=== PATIENT | female | born 1965 | race Caucasian/White ===

== ENCOUNTER 2016-05-17 06:52 | Day surgery (SDC) | payer BC, OTHER ==
[2016-05-13 15:25] VITALS: BMI 23.4
--- NOTE | 2016-05-16 14:33 | P.GSHP ---
History of Present Illness H&P Date: 05/17/16 CHIEF COMPLAINT: GERD HISTORY OF PRESENT ILLNESS: The patient is a 51-year-old female who presents reports gastroesophageal reflux disease. Upper endoscopy was offered for further evaluation and management. PAST MEDICAL HISTORY: Please see list. PAST SURGICAL HISTORY: Please see list. MEDICATIONS: Please see list. ALLERGIES: Please see list. SOCIAL HISTORY: No illicit drug use FAMILY HISTORY: No reports of Crohn disease or ulcerative colitis. REVIEW OF ORGAN SYSTEMS: CONSTITUTIONAL: No reports of fevers or chills. GI: Denies any blood in stools or constipation. PHYSICAL EXAM: VITAL SIGNS: Stable GENERAL: Well-developed and pleasant in no acute distress. HEENT: No scleral icterus. Extraocular movements grossly intact. Moist buccal mucosa. NECK: Supple without lymphadenopathy. CHEST: Unlabored respirations. Equal bilateral excursions. CARDIOVASCULAR: Regular rate and rhythm. Distal 2+ pulses. ABDOMEN: Soft, nondistended. MUSCULOSKELETAL: No clubbing, cyanosis, or edema. ASSESSMENT: 1. Gastroesophageal reflux disease PLAN: 1. Recommend proceeding with an upper endoscopy Past Medical History Past Medical History: Hypertension Additional Past Medical History / Comment(s): Diverticulitis History of Any Multi-Drug Resistant Organisms: None Reported Past Surgical History: Bariatric Surgery, Orthopedic Surgery, Tonsillectomy Additional Past Surgical History / Comment(s): D and C with fibroid removal and ABALATION. 08/07/12 RNY, panniculectomy. TOE SX Past Anesthesia/Blood Transfusion Reactions: Motion Sickness Past Psychological History: Depression Smoking Status: Never smoker Past Alcohol Use History: Occasional Past Drug Use History: None Reported - Past Family History Mother Family Medical History: No Reported History Additional Family Medical History / Comment(s): Skin Cancer Medications and Allergies Home Medications Medication Instructions Recorded Confirmed Type Metoprolol/Hydrochlorothiazide 25 mg PO BID 08/08/13 05/13/16 History [Metoprolol-Hctz 50-25 mg Tab] Multivitamins, Thera [Multivitamin] 1 tab PO DAILY 08/08/13 05/13/16 History Sertraline [Zoloft] 100 mg PO DAILY 09/18/15 05/13/16 History Calcium Carbonate/Vitamin D3 1 each PO DAILY 05/13/16 05/13/16 History [Calcium 600-Vit D3 200 Tablet] Allergies Allergy/AdvReac Type Severity Reaction Status Date / Time No Known Allergies Allergy Verified 05/13/16 15:19
[~2016-05-17 06:52] MED LIST: LACTATED RINGERS 1,000 ML IV SCH
[2016-05-17 07:01] VITALS: RESP 18; TEMP 97.3
[2016-05-17] MEDS ORDERED: LACTATED RINGERS 1,000 ML IV ONE ×2 (07:06)
[2016-05-17] MEDS ORDERED: LIDOCAINE 1% INJ 10MG/ML (20 ML MDV) ONE (07:07)
[2016-05-17] MEDS ORDERED: PROPOFOL 10 MG/ML 20 ML VIAL IV ONE (07:07)
[2016-05-17] MEDS ORDERED: GLYCOPYRROLATE 0.2 MG/ML 2 ML VIAL ONE (07:07)
[2016-05-17] MEDS ORDERED: IV FLUID CONTINUATION 1,000 ML IV ONE (07:27)
--- NOTE | 2016-05-17 07:33 | P.PCN ---
Date of Procedure: 05/17/16 Description of Procedure: PREOPERATIVE DIAGNOSIS: Gastroesophageal reflux disease. Epigastric abdominal pain. POSTOPERATIVE DIAGNOSIS: Gastroesophageal reflux disease. Epigastric abdominal pain. Gastrojejunal stricture. OPERATION: Esophagogastrojejunoscopy with balloon dilatation from 12 to 18 mm. Esophagogastrojejunoscopy with cold biopsies along jejunum and gastroesophageal junction. SURGEON: Melisa Toribio MD ANESTHESIA: MAC. INDICATIONS: The patient is a 51-year-old female who presents with a history of epigastric abdominal pain and history of gastric bypass. Benefits and risks of the procedure were described. Informed consent was obtained. DESCRIPTION: The patient was brought into the endoscopy suite and laid in the left lateral decubitus position. After a timeout was confirmed, the procedure was initiated. An Olympus gastroscope was passed along the posterior oropharynx down to the distal esophagus where the squamocolumnar junction was unremarkable. The gastric pouch was entered. A small pouch of 2 cm was identified. Stricture was also identified. Biopsies were obtained of the proximal jejunum and GE junction. A gastrojejunal stricture of 12 mm was found as the adult gastroscope was 9.5 mm in size. A LAFASO balloon dilator was placed through the scope. Final insufflation up to 18 mm was performed with a total of 2 minutes. The scope was advanced up to 60 cm from the incisors into the Linus limb. The mucosa of the gastrojejunal anastomosis was intact. No full-thickness injury was encountered. The GI tract was desufflated. The patient tolerated the procedure well. FINDINGS: Squamocolumnar junction unremarkable at 38 cm. 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 Stricture of approximately 12 mm encountered. No chronic gastrojejunal ulceration encountered. Small gastric pouch 2 cm. Successful balloon dilatation to 18 mm. RECOMMENDATIONS: Upper endoscopy as needed.
[2016-05-17] MEDS ORDERED: hydrALAZINE HCL 20 MG/ML 1 ML VIAL IVP ONE (07:37)
[2016-05-17 08:04] VITALS: BP 150/78; PULSE 87
[2016-05-17 08:56] LABS: CH 31.7; CHCM 33.9; HCT 40.9 % (34.0-46.0); HDW 2.51; HGB 13.6 gm/dL (11.4-16.0); MCH 31.2 pg (25.0-35.0); MCHC 33.3 g/dL (31.0-37.0); MCV 93.7 fL (80.0-100.0); Mean Platelet Volume 6.6; RBC 4.36 m/uL (3.80-5.40); RDW 12.2 % (11.5-15.5); WBC 3.7 k/uL (3.8-10.6)
[2016-05-17 09:02] LABS: Partial Thromboplastin Time 23.1 sec (22.0-30.0); Prothrombin Time 10.5 sec (9.0-12.0)
[2016-05-17 10:59] LABS: ALT 69 U/L (9-52); AST 45 U/L (14-36); Alkaline Phosphatase 62 U/L (38-126); Anion Gap 9 mmol/L; Blood Urea Nitrogen 13 mg/dL (7-17); Calcium 9.5 mg/dL (8.4-10.2); Carbon Dioxide 29 mmol/L (22-30); Chloride 106 mmol/L (98-107); Cholesterol 201 mg/dL (<200); Glucose 107 mg/dL (74-99); HDL Cholesterol 76 mg/dL (40-60); Iron 120 ug/dL (37-170); Non-African American GFR(MDRD) >60 (>60 ml/min/1.73 sqM); Phosphorous 3.5 mg/dL (2.5-4.5); Sodium 144 mmol/L (137-145); Total Bilirubin 0.8 mg/dL (0.2-1.3); Total Protein 6.5 g/dL (6.3-8.2); Triglycerides 106 mg/dL (<150)
[2016-05-17 11:05] LABS: Potassium 4.3 mmol/L (3.5-5.1)
[2016-05-17 11:11] LABS: Prealbumin 30 mg/dL (18-36); Total Iron Binding Capacity 316 ug/dL (265-497)
[2016-05-17 11:46] LABS: Hemoglobin A1C 5.2 % (4.2-6.1)
[2016-05-17 12:12] LABS: Vitamin B12 425 pg/mL (239-931)
[2016-05-22 13:38] LABS: Selenium 153 mcg/L (63-160)
== END 2016-05-17 08:03 | disposition home or self-care (01) ==
LOC: ORWHC2ENDO 06:52
PROVIDERS: ATTEND Surgery Plastic and Reconstructive Surgery
DX: K21.9 Gastro-esophageal reflux disease without esophagitis (principal); K31.89 Other diseases of stomach and duodenum; K29.50 Unspecified chronic gastritis without bleeding; Z98.84 Bariatric surgery status; I10 Essential (primary) hypertension; F32.9 Major depressive disorder, single episode, unspecified; Z79.899 Other long term (current) drug therapy
CPT/HCPCS: 84255; 84134; 88305; 84425; 80061; 80053; 82607; 82728; 83036; 82525; 82746; 83540; 83550; 83735; 84100; 84590; 84630; 85027; 85610; 85730; 82306; 83970; 36415; 43239; 43249; J0360; J2001; J2704; 88342

== ENCOUNTER → 2022-02-10 | Outpatient (CLI) | payer OTHER ==
[2022-02-10 14:02] VITALS: BP 141/87; PULSE 86; TEMP 98.3; BMI 26.7
--- NOTE | 2022-02-10 14:26 | P.HPBAR ---
Bariatric H&P - History & Physicial H&P Date: 02/10/22 History & Physicial: Visit/CC: hospital f/u Patient initial contact: Initial weight: 93.1 kg Initial weight in pounds: 205.25 Height: 5 ft Initial BMI: 40.1 Last weight: Current weight: 62.142 kg Current weight in pounds: 137.00 Current BMI: 26.7 [place] body weight (based on NIH guidelines): 45.359 kg Excess body weight loss: 64.8% The patient is a 56 year-old F who presents for Bariatric Assessment. No GERD. She is almost 10 years out. She reports intermittent epigastric pain. Her last follow-up is in 5 years. She had COVID in the past. She reports dysphagia with pills. She had anemia Hgb 5.1. She was sent to [facility]. She drinks 4 beers for week. She did not have a colonoscopy. She may be do for a colonoscopy. Recommend colonoscopy. She has severe dysphagia. Recommend upper endoscopy with dysphagia. She reports fatigue and tired with no energy. Recommend urine drug screen. She needs iron infusion. Lysis of adhesions may be possible due to her pain. Upper and lower scope for anemia and dysphagia. Past Medical History Past Medical History: Hypertension Additional Past Medical History / Comment(s): Diverticulitis History of Any Multi-Drug Resistant Organisms: None Reported Past Surgical History: Bariatric Surgery, Orthopedic Surgery, Tonsillectomy Additional Past Surgical History / Comment(s): D and C with fibroid removal and ABALATION. 08/07/12 RNY, panniculectomy. TOE SX Past Anesthesia/Blood Transfusion Reactions: Motion Sickness Past Psychological History: Anxiety, Depression Smoking Status: Never smoker Past Alcohol Use History: Occasional Past Drug Use History: None Reported - Past Family History Mother Family Medical History: No Reported History Additional Family Medical History / Comment(s): Skin Cancer Surgical - Exam Vital Signs Temp Pulse BP 98.3 F 86 141/87 02/10/22 13:48 02/10/22 13:48 02/10/22 13:48 Bariatric Checklist Checklist: Plan: Checklist: EGD: 1. Hiatal hernia: 2. H. Pylori: HgbA1c: Vitamin D: Smoking: Never smoker Primary care physician referral: Dr. Haddad Psychiatry clearance: Cardiology clearance: Sleep study: Diet journal: VTE risk score: VTE risk level: Rehab needs at discharge:
[2022-02-10 15:53] LABS: INR 0.9 (<1.2); Partial Thromboplastin Time 23.2 sec (22.0-30.0); Prothrombin Time 10.2 sec (9.0-12.0)
[2022-02-10 23:12] LABS: HCT 31.1 % (37.2-46.3); HGB 8.9 g/dL (12.0-15.0); MCH 23.3 pg (27.0-32.0); MCHC 28.6 g/dL (32.0-37.0); MCV 81.4 fL (80.0-97.0); Mean Platelet Volume 9.3 fL (9.5-12.2); NRBC Per 100 WBC 0 /100 WBCS (0.0-0.0); Platelet Count 309 X 10*3/uL (140-440); RBC 3.82 X 10*6/uL (4.10-5.20); RDW 23.8 % (11.5-14.5); WBC 5.78 X 10*3/uL (4.50-10.00)
[2022-02-11 00:16] LABS: % Iron Saturation 10.52 (12.00-45.00); ALT 25 U/L (8-44); AST 33 U/L (13-35); African American GFR (CKD) 112.7 (60.0-200.0); Albumin 4.5 g/dL (3.8-4.9); Albumin/Globulin Ratio 1.92 (1.60-3.17); Alkaline Phosphatase 79 U/L (41-126); BUN/Creat Ratio 20.97 Ratio (12.00-20.00); Blood Urea Nitrogen 13.9 mg/dL (9.0-27.0); Calcium 10.1 mg/dL (8.7-10.3); Carbon Dioxide 22.6 mmol/L (20.0-27.5); Chloride 104 mmol/L (96-109); Ferritin 13.9 ng/mL (10.0-291.0); Globulin 2.4 g/dL (1.6-3.3); Glucose 95 mg/dL (70-110); Iron 60 ug/dL (50-170); Magnesium 1.9 mg/dL (1.5-2.4); Non-African American GFR(CKD) 97.2 (60.0-200.0); Phosphorus 4.7 mg/dL (2.4-5.1); Potassium 3.6 mmol/L (3.5-5.5); Sodium 141 mmol/L (135-145); Total Bilirubin <0.15 mg/dL (0.30-1.20); Total Iron Binding Capacity 571 ug/dL (228-460); Total Protein 6.9 g/dL (6.2-8.2)
[2022-02-11 00:24] LABS: Chol/HDL Ratio 2.64 Ratio; LDL Cholesterol,Calculated 106.6 mg/dL (0.0-131.0); Prealbumin 18.9 mg/dL (18.0-42.0); VLDL Calculation 19.96 mg/dL (5.00-40.00)
[2022-02-11 13:24] LABS: Zinc, Serum 49 ug/dL (60-130)
[2022-02-12 06:14] LABS: Vitamin A 44 ug/dL (38-106)
[2022-02-12 13:00] LABS: Vit B1(Thiamine) 61 ug/L (38-122)
== END ==
LOC: BARWHC3 13:35
PROVIDERS: ATTEND Surgery Plastic and Reconstructive Surgery
DX: E66.01 Morbid (severe) obesity due to excess calories (principal); D50.8 Other iron deficiency anemias; E89.1 Postprocedural hypoinsulinemia; K90.89 Other intestinal malabsorption; E55.9 Vitamin D deficiency, unspecified; K74.1 Hepatic sclerosis; N19 Unspecified kidney failure; T56.894A Toxic effect of other metals, undetermined, initial encounter; K50.90 Crohn's disease, unspecified, without complications; Z68.26 Body mass index [BMI] 26.0-26.9, adult
CPT/HCPCS: 84255; 84134; 84425; 80061; 80053; 82607; 82728; 82525; 82746; 83540; 83550; 83735; 84100; 84443; 84590; 84630; 85027; 85610; 85730; 82306; 80323; 83970; 83036; 80307; 99211; 93005; 36415; G0482

== ENCOUNTER 2022-03-08 08:37 | Day surgery (SDC) | payer OTHER ==
[2022-03-03 13:51] VITALS: BMI 25.9
[2022-03-08] MEDS ORDERED: LACTATED RINGERS 1,000 ML IV SCH (08:51)
--- NOTE | 2022-03-08 09:00 | P.GSHP ---
History of Present Illness H&P Date: 03/08/22 CHIEF COMPLAINT: GERD and colon screen HISTORY OF PRESENT ILLNESS: The patient is a 57-year-old female who presents with gastroesophageal reflux disease and need for colon screen. Upper and lower endoscopy were offered for further evaluation and management. PAST MEDICAL HISTORY: Please see list. PAST SURGICAL HISTORY: Please see list. MEDICATIONS: Please see list. ALLERGIES: Please see list. SOCIAL HISTORY: No illicit drug use FAMILY HISTORY: No reports of Crohn disease or ulcerative colitis. REVIEW OF ORGAN SYSTEMS: CONSTITUTIONAL: No reports of fevers or chills. GI: Denies any blood in stools or constipation. PHYSICAL EXAM: VITAL SIGNS: Stable GENERAL: Well-developed pleasant in no acute distress. HEENT: No scleral icterus. Extraocular movements grossly intact. Moist buccal mucosa. NECK: Supple without lymphadenopathy. CHEST: Unlabored respirations. Equal bilateral excursions. CARDIOVASCULAR: Regular rate and rhythm. Distal 2+ pulses. ABDOMEN: Soft, nondistended. MUSCULOSKELETAL: No clubbing, cyanosis, or edema. ASSESSMENT: 1. Gastroesophageal reflux disease 2. Colon screen. PLAN: 1. Recommend proceeding with an upper and lower endoscopy Past Medical History Past Medical History: Hypertension Additional Past Medical History / Comment(s): Diverticulitis History of Any Multi-Drug Resistant Organisms: None Reported Past Surgical History: Bariatric Surgery, Orthopedic Surgery, Tonsillectomy Additional Past Surgical History / Comment(s): D and C with fibroid removal and ABALATION. 08/07/12 RNY, panniculectomy. TOE SX, blepheroplasty Past Anesthesia/Blood Transfusion Reactions: Motion Sickness Smoking Status: Never smoker - Past Family History Mother Family Medical History: No Reported History Additional Family Medical History / Comment(s): Skin Cancer Medications and Allergies Home Medications Medication Instructions Recorded Confirmed Type ARIPiprazole [Abilify] 2 mg PO DAILY 02/10/22 03/03/22 History Cyclobenzaprine HCl 5 mg PO HS PRN 02/10/22 03/03/22 History Escitalopram Oxalate [Lexapro] 20 mg PO DAILY 02/10/22 03/03/22 History Ferrous Sulfate [Iron] 325 mg PO DAILY 02/10/22 03/03/22 History Losartan/Hydrochlorothiazide 1 tab PO DAILY 02/10/22 03/03/22 History [Losartan-Hctz 100-25 mg Tab] Metoprolol Tartrate [Lopressor] 50 mg PO BID 02/10/22 03/03/22 History amLODIPine BESYLATE 5 mg PO DAILY 02/10/22 03/03/22 History hydrOXYzine HCL [Hydroxyzine HCl] 25 mg PO HS PRN 02/10/22 03/03/22 History Multivitamin [Multivitamins Adult 1 each PO DAILY 02/23/22 03/03/22 History Gummies] Iron Infusion IVPB 03/03/22 History Allergies Allergy/AdvReac Type Severity Reaction Status Date / Time No Known Allergies Allergy Verified 03/03/22 13:55
[2022-03-08 09:17] VITALS: RESP 16; TEMP 98.2
[2022-03-08] MEDS ORDERED: PROPOFOL 10 MG/ML 20 ML VIAL IV ONE (09:24)
--- NOTE | 2022-03-08 09:41 | P.PCN ---
Date of Procedure: 03/08/22 Description of Procedure: PREOPERATIVE DIAGNOSIS: Dysphagia. s/p Linus-en-y gastric bypass. Nausea with vomiting. Gastroesophageal reflux disease POSTOPERATIVE DIAGNOSIS: Dysphagia. s/p Linus-en-y gastric bypass. Nausea with vomiting. 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 SURGEON: Melisa Toribio MD ANESTHESIA: MAC. INDICATIONS: The patient is a 57-year-old female who presents with a history of dysphagia, gastric bypass including nausea and vomiting. Benefits and risks of the procedure were described. Informed consent was obtained. DESCRIPTION: The patient was brought into the endoscopy suite and laid in the left lateral decubitus position. After a timeout was confirmed, the procedure was initiated. An Olympus gastroscope was passed along the posterior oropharynx down to the distal esophagus where the squamocolumnar junction was unremarkable. The gastric pouch was entered. A gastrojejunal stricture of 14 mm was found as the adult gastroscope was 9.5 mm in size. A [employer] balloon dilator was placed through the scope. Final insufflation up to 18.5 mm was performed with a total of 2 minutes. The scope was advanced up to 60 cm from the incisors into the Linus limb. The mucosa of the gastrojejunal anastomosis was intact. No chronic gastrojejunal marginal ulcer was encountered. No full-thickness injury was encountered. The GI tract was desufflated. The patient tolerated the procedure well. FINDINGS: Squamocolumnar junction unremarkable at 37 cm. Stricture of approximately 14 mm encountered. No shronic gastrojejunal ulceration encountered. Successful balloon dilatation to 18.5 Diaphragmatic hiatal hernia, 2 cm. Gastric pouch 3 cm. RECOMMENDATIONS: Continue omeprazole Upper endoscopy as needed
[2022-03-08 10:14] VITALS: BP 146/95; PULSE 57
--- NOTE | 2022-03-08 10:45 | P.PCN ---
Date of Procedure: 03/08/22 Description of Procedure: PREOPERATIVE DIAGNOSIS: Anemia POSTOPERATIVE DIAGNOSIS: History of anemia OPERATION: Colonoscopy to the ascending colon SURGEON: Melisa Toribio MD. ANESTHESIA: MAC. INDICATIONS: The patient is a 57-year-old female who presents with anemia. Benefits and risks were described and informed consent was obtained. DESCRIPTION OF PROCEDURE: The patient had undergone Sutab prep. The patient had been brought into the operating room and laid in the left lateral decubitus position. After adequate intravenous sedation, the rectum was examined with 2% lidocaine jelly. External hemorrhoids were encountered. The rectal tone was within normal limits. No lesions were palpated in the rectal vault. An Olympus colonoscope was advanced through very tortuous sigmoid colon. Due to long length of colon, scope terminated to the ascending colon. The prep was excellent. No scattered diverticulosis was encountered. No colonic polyps were found. No evidence of focal colitis was found. Retroflexion of the scope demonstrated grade 3 internal hemorrhoids without active bleeding or inflammation. The colon was desufflated. The patient had tolerated the procedure well. Withdrawal time was over 6 minutes. FINDINGS: Aronchick preparation quality scale 1 (1-5) Internal hemorrhoids, grade 3 External prolapsed hemorrhoids, grade 3 No arteriovenous malformations. No adenomatous polyps. No focal colitis. No sigmoid diverticulosis RECOMMENDATIONS: Lower endoscopy in 5 years, 2026 May need additional diagnostic studies including computed tomography scan due to redundant sigmoid colon, possible sigmoid volvulus Plan - Discharge Summary New Discharge Prescriptions: New Omeprazole [PriLOSEC] 40 mg PO DAILY #14 cap Continue ARIPiprazole [Abilify] 2 mg PO DAILY Iron Infusion IVPB Metoprolol Tartrate [Lopressor] 50 mg PO BID Escitalopram Oxalate [Lexapro] 20 mg PO DAILY hydrOXYzine HCL 25 mg PO HS PRN PRN Reason: sleep Ferrous Sulfate [Iron] 325 mg PO DAILY Cyclobenzaprine HCl 5 mg PO HS PRN PRN Reason: sleep amLODIPine BESYLATE 5 mg PO DAILY Losartan/Hydrochlorothiazide [Losartan-Hctz 100-25 mg Tab] 1 tab PO DAILY Multivitamin [Multivitamins Adult Gummies] 1 each PO DAILY Discharge Medication List ARIPiprazole [Abilify] 2 mg PO DAILY 02/10/22 [History] Cyclobenzaprine HCl 5 mg PO HS PRN 02/10/22 [History] Escitalopram Oxalate [Lexapro] 20 mg PO DAILY 02/10/22 [History] Ferrous Sulfate [Iron] 325 mg PO DAILY 02/10/22 [History] Losartan/Hydrochlorothiazide [Losartan-Hctz 100-25 mg Tab] 1 tab PO DAILY 02/10/22 [History] Metoprolol Tartrate [Lopressor] 50 mg PO BID 02/10/22 [History] amLODIPine BESYLATE 5 mg PO DAILY 02/10/22 [History] hydrOXYzine HCL 25 mg PO HS PRN 02/10/22 [History] Multivitamin [Multivitamins Adult Gummies] 1 each PO DAILY 02/23/22 [History] Iron Infusion IVPB 03/03/22 [History] Omeprazole [PriLOSEC] 40 mg PO DAILY #14 cap 03/08/22 [Rx] [facility]Ref[place] [facility] [place] [place] [facility] Patient Instructions/Handouts: Colonoscopy (DC), *Surgery [facility] - (Anesthesia) Endoscopy Discharge Instructions Activity/Diet/Wound Care/Special Instructions: Repeat colonoscopy in 5 years, 2026 Discharge Disposition: HOME SELF-CARE
== END 2022-03-08 11:46 | disposition home or self-care (01) ==
LOC: ORWHC2ENDO 08:37
PROVIDERS: ATTEND Surgery Plastic and Reconstructive Surgery
DX: K21.9 Gastro-esophageal reflux disease without esophagitis (principal); D64.9 Anemia, unspecified; K44.9 Diaphragmatic hernia without obstruction or gangrene; I10 Essential (primary) hypertension; K56.699 Other intestinal obstruction unspecified as to partial versus complete obstruction; K64.8 Other hemorrhoids; F32.A Depression, unspecified; Z98.84 Bariatric surgery status; Z79.899 Other long term (current) drug therapy; Z80.9 Family history of malignant neoplasm, unspecified; Z90.89 Acquired absence of other organs
CPT/HCPCS: 45378; 43249; J2704; C1726

== ENCOUNTER → 2022-06-16 | Outpatient (CLI) | payer OTHER ==
[2022-06-16 17:33] VITALS: BP 146/83; PULSE 68; TEMP 98; BMI 27.5
--- NOTE | 2022-08-04 06:20 | P.BASOAP ---
Subjective Progress Note Date: 06/16/22 DATE OF SERVICE: 06/16/22 CHIEF COMPLAINT: Follow-up gastric bypass. HISTORY OF PRESENT ILLNESS: Eloisa Scruggs is a 57-year-old female who is status post gastric bypass in July 2012. She is 10 years out. Her highest weight in the program was 205.4 pounds. Body mass index was 40.1. Today she comes in weighing 141 pounds from 115 pounds, 7 years ago. She has gained 26 pounds in 7 years. She had anemia and had completed upper and lower endoscopy. No further dysphagia. No further gastroesophageal reflux disease. PHYSICAL EXAM: VITAL SIGNS: 5 feet 0 inches, 141 pounds, body mass index 27.5. Vital Signs Temp 98 F 06/16/22 17:29 Pulse 68 06/16/22 17:29 Resp BP 146/83 06/16/22 17:29 Pulse Ox FiO2 GENERAL: Well-developed female in no distress. HEENT: No scleral icterus. NECK: Supple without lymphadenopathy. CHEST: Nonlabored respirations. Equal bilateral excursions. CARDIOVASCULAR: Regular rate and rhythm. ABDOMEN: Soft, nontender. MUSCULOSKELETAL: No clubbing, cyanosis, or edema. NEURO: No focal or lateralizing signs. PSYCH: Alert and oriented to person, place, and time. EGD FINDINGS: Squamocolumnar junction unremarkable at 37 cm. Stricture of approximately 14 mm encountered. No shronic gastrojejunal ulceration encountered. Successful balloon dilatation to 18.5 Diaphragmatic hiatal hernia, 2 cm. Gastric pouch 3 cm. COLON FINDINGS: Aronchick preparation quality scale 1 (1-5) Internal hemorrhoids, grade 3 External prolapsed hemorrhoids, grade 3 No arteriovenous malformations. No adenomatous polyps. No focal colitis. No sigmoid diverticulosis LABS: Reviewed. Iron is low. ASSESSMENT: 1. Morbid obesity due to excess caloric intake. 2. Body mass index reduced from 40.1 to 27.5. 3. Status post Linus-en-Y gastric bypass. 4. Status post massive weight loss, 64 pounds. 5. History of abdominal pain 6. Hypertension without congestive heart failure. 7. History of iron-deficiency anemia. PLAN: 1. Follow up with iron infusions as needed for anemia 2. Follow up colonoscopy in 5 years 3. Upper endoscopy as needed for dysphagia 4. May benefit from hiatal hernia repair for symptomatic dysphagia 5. Follow up as needed. Objective - Vital Signs Vital signs: Vital Signs Temp 98 F 06/16/22 17:29 Pulse 68 06/16/22 17:29 Resp BP 146/83 06/16/22 17:29 Pulse Ox FiO2 Assessment/Plan Plan: Date: 06/16/22 Initial Weight: 93.1 kg Initial BMI: 40.1 Current Weight: 63.957 kg Current BMI: 27.5 Type of Surgery: Total Volume in Band: Previous Volume: Volume Removed: Volume Added: Band Size:
== END ==
LOC: BARWHC3 16:46
PROVIDERS: ATTEND Surgery Plastic and Reconstructive Surgery
DX: E66.01 Morbid (severe) obesity due to excess calories (principal); I50.9 Heart failure, unspecified; D50.9 Iron deficiency anemia, unspecified; Z68.27 Body mass index [BMI] 27.0-27.9, adult
CPT/HCPCS: 99211

== ENCOUNTER → 2022-11-10 | Outpatient (CLI) | payer OTHER ==
[2022-11-10 16:21] VITALS: BP 131/80; PULSE 71; TEMP 98; BMI 26.5
--- NOTE | 2022-11-10 16:46 | P.BASOAP ---
Subjective Progress Note Date: 11/10/22 She comes in with sigmoid volvulus. She has troubles. She increased abdominal pain. Recommend barium enema. Recommend EKG. Objective - Vital Signs Vital signs: Vital Signs Temp 98 F 11/10/22 16:19 Pulse 71 11/10/22 16:19 Resp BP 131/80 11/10/22 16:19 Pulse Ox FiO2 Intake & Output 11/09/22 11/10/22 11/10/22 18:59 06:59 18:59 Weight 61.689 kg Assessment/Plan Plan: Date: 11/10/22 Initial Weight: 93.1 kg Initial BMI: 40.1 Current Weight: 61.689 kg Current BMI: 26.5 Type of Surgery: Total Volume in Band: Previous Volume: Volume Removed: Volume Added: Band Size:
== END ==
LOC: BARWHC3 16:09
PROVIDERS: ATTEND Surgery Plastic and Reconstructive Surgery
DX: Z53.9 Procedure and treatment not carried out, unspecified reason (principal)
CPT/HCPCS: 99211

== ENCOUNTER → 2022-12-08 | Outpatient (CLI) | payer OTHER ==
--- NOTE | 2022-12-08 12:16 | FL ---
EXAMINATION TYPE: FL barium enema DATE OF EXAM: 12/08/2022 9:58 AM CLINICAL INDICATION:Female, 57 years old with history of K59.00 CONSTIPATION; COMPARISON: 08/08/2012 TECHNIQUE: The procedure was explained and patient history elicited. All patient questions were answ ered prior to beginning. Multiple spot fluoroscopic images of the colon were obtained after the recta l administration of liquid barium as the contrast agent. Multiple postprocedural overhead images, w ere obtained and reviewed. 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 There is no evidence for organomegaly or pneumoperitoneum. No abnormal calcifications. The visualized osseous structures are intact. The colon demonstrates redundant course with normal contour without evidence of focal stricture, inte rnal filling defects, or abnormal outpouching. Views of the cecum are unremarkable. Postevacuation images are unremarkable. IMPRESSION: 1. Redundant colon limits evaluation, No evidence for abnormal stricture or mass lesion within the s igmoid colon.
== END | disposition home or self-care (01) ==
LOC: RADFLMAIN 07:31
PROVIDERS: ATTEND Surgery Plastic and Reconstructive Surgery
DX: K59.00 Constipation, unspecified (principal); K56.2 Volvulus
CPT/HCPCS: 74270

== ENCOUNTER → 2023-01-12 | Outpatient (CLI) | payer OTHER ==
[2023-01-12 16:37] VITALS: BP 131/84; PULSE 71; TEMP 97.6; BMI 27.5
--- NOTE | 2023-01-12 17:56 | P.BASOAP ---
Subjective Progress Note Date: 01/12/23 Sigmoid volvulus. Needs suprep. Cardiac clearance. Colectomy for sigmoid volvulus. Patient has gain 30 pounds from [place] 115 pounds. at bedside also with 50-60 pound weight gain. Patient does have recent labs done at outside facility. Risks of weight gain may be due to thyroid disorder. Recomm end thyroid levels last TSH less than 1.0. Risk of surgery, colectomy reviewed including adjustment of protein intake. Barium enema reviewed with moderate density sigmoid colon, hepatic flexure, splenic flexure and early future sigmoid volvulus. Objective - Vital Signs Vital signs: Vital Signs Temp 97.6 F 01/12/23 16:25 Pulse 71 01/12/23 16:25 Resp BP 131/84 01/12/23 16:25 Pulse Ox FiO2 Intake & Output 01/11/23 01/12/23 01/12/23 18:59 06:59 18:59 Weight 63.957 kg Assessment/Plan Plan: Date: 01/12/23 Initial Weight: 93.1 kg Initial BMI: 40.1 Current Weight: 63.957 kg Current BMI: 27.5 Type of Surgery: Total Volume in Band: Previous Volume: Volume Removed: Volume Added: Band Size:
== END ==
LOC: BARWHC3 15:43
PROVIDERS: ATTEND Surgery Plastic and Reconstructive Surgery
DX: Z53.9 Procedure and treatment not carried out, unspecified reason (principal)
CPT/HCPCS: 99211

== ENCOUNTER → 2023-03-09 | Outpatient (CLI) | payer OTHER ==
[2023-03-10 02:36] LABS: Basophils # (A) 0.04 X 10*3/uL (0.00-0.10); Basophils % (A) 0.9 %; Eosinophils # (A) 0.05 X 10*3/uL (0.04-0.35); Eosinophils % (A) 1.1 %; HCT 36.9 % (37.2-46.3); HGB 12.7 g/dL (12.0-15.0); Lymphocytes % (A) 30.9 %; MCH 33.2 pg (27.0-32.0); MCHC 34.4 g/dL (32.0-37.0); MCV 96.3 FL (80.0-97.0); Mean Platelet Volume 9.2 FL (9.5-12.2); Monocytes # (A) 0.43 X 10*3/uL (0.20-1.00); Monocytes % (A) 9.5 %; NRBC Per 100 WBC 0 X 10*3/uL (0.00-0.01); Neutrophils % (A) 57.4 %; Platelet Count 309 X 10*3/uL (140-440); RBC 3.83 X 10*6/uL (4.10-5.20); RDW 11.7 % (11.5-14.5); WBC 4.53 X 10*3/uL (4.50-10.00)
[2023-03-10 02:56] LABS: ALT 43 U/L (8-44); AST 38 U/L (13-35); Albumin 4.9 g/dL (3.8-4.9); Albumin/Globulin Ratio 2.23 Ratio (1.60-3.17); Alkaline Phosphatase 85 U/L (41-126); BUN/Creat Ratio 23.33 Ratio (12.00-20.00); Calcium 10.4 mg/dL (8.7-10.3); Carbon Dioxide 25.7 mmol/L (21.6-31.8); Chloride 100 mmol/L (96-109); Globulin 2.2 g/dL (1.6-3.3); Glucose 109 mg/dL (70-110); Potassium 4.1 mmol/L (3.5-5.5); Sodium 140 mmol/L (135-145); Total Bilirubin 0.5 mg/dL (0.3-1.2); Total Protein 7.1 g/dL (6.2-8.2)
== END | disposition home or self-care (01) ==
LOC: LABPAT 15:04
PROVIDERS: ATTEND Surgery Plastic and Reconstructive Surgery
DX: Z01.812 Encounter for preprocedural laboratory examination (principal)
CPT/HCPCS: 80053; 85025; 86850; 86900; 86901

== ENCOUNTER → 2023-03-09 | Outpatient (CLI) | payer OTHER ==
[2023-03-09 14:09] VITALS: BP 143/82; PULSE 65; TEMP 98.3; BMI 27.1
--- NOTE | 2023-03-09 15:01 | P.BASOAP ---
Subjective Progress Note Date: 03/09/23 DATE OF SERVICE: 03/09/23 CHIEF COMPLAINT: Follow-up gastric bypass. HISTORY OF PRESENT ILLNESS: Eloisa Scruggs is a 58-year-old female who is 10 years out from a gastric bypass in July 2012. She comes in with chronic constipation including chronic anemia and chronic lower abdominal pain for several months. Despite conservative measures, she continues to have symptoms with diagnosis of diverticulitis and volvulus. She is seeking surgical intervention with colectomy. Her highest weight in the program was 205.4 pounds. Body mass index was 40.1. Today she comes in weighing 139 pounds from 115 pounds from 7 years ago. She has gained 24 pounds in 7 years. Her present body mass index is 27.1. Her ideal body weight for her 5 foot frame is 127 pounds. She has lost 66 pounds. Her percent excess weight loss is 85 %. PAST MEDICAL HISTORY: 1. History of morbid obesity due to excess calories 2. Hypertensive heart disease 3. Depressive disorder 4. Diverticulosis 5. Chronic anemia PAST SURGICAL HISTORY: 1. EGD. 2. D&C. 3. Hysterectomy. 4. Endometrial ablation. 5. Tonsillectomy. 6. Laparoscopic Linus-en-Y gastric bypass. 7. Abdominoplasty. 8. Bilateral breast reduction. 9. Colonoscopy. MEDICATIONS: Home Medications Medication Instructions Recorded Confirmed Escitalopram Oxalate [Lexapro] 20 mg PO DAILY 02/10/22 03/30/23 Losartan/Hydrochlorothiazide 1 tab PO DAILY 02/10/22 03/30/23 [Losartan-Hctz 100-25 mg Tab] Metoprolol Tartrate [Lopressor] 25 mg PO BID 02/10/22 03/30/23 amLODIPine BESYLATE 10 mg PO DAILY 02/10/22 03/30/23 hydrOXYzine HCL 25 mg PO HS PRN 02/10/22 03/30/23 traZODone HCL [Desyrel] 50 mg PO HS PRN 11/10/22 03/30/23 Previous Rx's Medication Instructions Recorded Acetaminophen Tab [Tylenol Tab] 1,000 mg PO Q6HR PRN #30 tablet 03/19/23 Cyclobenzaprine [Flexeril] 10 mg PO TID #30 tab 03/19/23 Simethicone [Gas-X] 125 mg PO AC-TID PRN #20 capsule 03/19/23 Lactulose [Cephulac] 20 gm PO BID #400 ml 03/30/23 Tamsulosin [Flomax] 0.4 mg PO DAILY #5 cap 03/30/23 ALLERGIES: Allergies Allergy/AdvReac Type Severity Reaction Status Date / Time narcotics AdvReac Nausea & Uncoded 03/18/23 10:58 Vomiting SOCIAL HISTORY: She is a lifelong nontobacco user. FAMILY HISTORY: Significant for skin cancer including morbid obesity. REVIEW OF SYSTEMS: CONSTITUTIONAL: Highest weight of 205.4 pounds. Highest body mass index was 40.1. Percent excess weight loss of 116%. Present weight of 115 pounds. GASTROINTESTINAL: No reports of dumping syndrome. Has chronic constipation. Gastroesophageal reflux disease, completely resolved. HEENT: No troubles with vision or hearing. ENDOCRINE: Prior history of hypothyroidism; however, currently not on medication. Denies diabetes. RESPIRATORY: Denies any dyspnea on exertion. No reports of obstructive sleep apnea. CARDIOVASCULAR: No reports of heart attack or chest pain. MUSCULOSKELETAL: Resolved osteoarthritis. NEUROLOGIC: No reports of headaches or seizure disorders. PSYCH: History of depression without suicidal ideation. HEMATOLOGIC: Denies any easy bruising or bleeding. SKIN: Resolved panniculitis after panniculectomy GENITOURINARY: No bladder urgency. No blood in urine. PHYSICAL EXAM: VITAL SIGNS: 5 feet, 139 pounds, body mass index 27.1 Vital Signs Temp 98.3 F 03/09/23 14:03 Pulse 65 03/09/23 14:03 Resp BP 143/82 03/09/23 14:03 Pulse Ox FiO2 GENERAL: Well-developed female in no distress. HEENT: No scleral icterus. Extraocular movements grossly intact. NECK: Supple without lymphadenopathy. CHEST: Nonlabored respirations. Equal bilateral excursions. CARDIOVASCULAR: Regular rate and rhythm. ABDOMEN: Soft, mild abdominal distention MUSCULOSKELETAL: No clubbing, cyanosis, or edema. NEURO: No focal or lateralizing signs. PSYCH: Alert and oriented to person place time. SKIN: Well perfused STUDIES: Barium enema November 2022 independently reviewed demonstrates moderate redundancy of sigmoid colon and volvulus. This is my independent interpretation. ASSESSMENT: 1. History of morbid obesity due to excess calories 2. Hypertensive heart disease 3. Depressive disorder 4. Diverticulosis 5. Chronic anemia 6. Sigmoid volvulus PLAN: 1. She has chronic lower abdominal pain with intermittent volvulus, anemia, diverticulosis. Colectomy described for symptoms. 2. Enhanced colon recovery program. 3. DVT prophylaxis. 4. Antibiotic prophylaxis. 5. Inpatient hospitalization greater than 2 nights. 6. Recommend colonoscopy for tattooing along the colon 7. Benefits and risks of surgical robotic sigmoid resection was reviewed in detail. Robotic-assisted approach was also described. 8. Pills prescribed for colonoscopy prep. 9. Anticipated discharge instructions including pain control, nausea control, spontaneously voiding prior to discharge reviewed. 10. She is elevated risk due to pre-existing cardiovascular disease and gastric bypass. Objective - Vital Signs Vital signs: Vital Signs Temp 98.3 F 03/09/23 14:03 Pulse 65 03/09/23 14:03 Resp BP 143/82 03/09/23 14:03 Pulse Ox FiO2 Intake & Output 03/08/23 03/09/23 03/09/23 18:59 06:59 18:59 Weight 63.049 kg Assessment/Plan Plan: Date: 03/09/23 Initial Weight: 93.1 kg Initial BMI: 40.1 Current Weight: 63.049 kg Current BMI: 27.1 Type of Surgery: Total Volume in Band: Previous Volume: Volume Removed: Volume Added: Band Size:
== END ==
LOC: BARWHC3 13:31
PROVIDERS: ATTEND Surgery Plastic and Reconstructive Surgery
DX: E66.01 Morbid (severe) obesity due to excess calories (principal); I11.9 Hypertensive heart disease without heart failure; F32.A Depression, unspecified; D64.9 Anemia, unspecified; K56.2 Volvulus; K57.90 Diverticulosis of intestine, part unspecified, without perforation or abscess without bleeding; Z88.5 Allergy status to narcotic agent; Z79.899 Other long term (current) drug therapy; Z68.27 Body mass index [BMI] 27.0-27.9, adult
CPT/HCPCS: 99211

== ENCOUNTER 2023-03-17 07:02 | Inpatient (IN) | payer OTHER ==
[2023-03-15 11:13] VITALS: BMI 26.9
[2023-03-17] MEDS ORDERED: LIDOCAINE 1% (10MG/ML) FOR IV START INTRADERMA PRN (07:17)
[2023-03-17] MEDS ORDERED: LACTATED RINGERS 1,000 ML IV ONE (07:18)
[2023-03-17] MEDS ORDERED: PHENYLEPHRINE-0.9% NACL SYG 1,000 MCG/10 ML SYRINGE ONE (07:35)
[2023-03-17] MEDS ORDERED: PROPOFOL 10 MG/ML 20 ML VIAL IV ONE (07:35)
[2023-03-17] MEDS ORDERED: LIDOCAINE 1% INJ 10MG/ML (20 ML MDV) ONE (07:35)
[2023-03-17] MEDS ORDERED: Antibiotics per Pharmacy 1 EACH MISC MISCELLANE PRN (07:39)
[2023-03-17] MEDS ORDERED: HEPARIN SODIUM,PORCINE 5,000 UNIT/ML 1 ML VIAL SQ PRN (07:39)
[2023-03-17] MEDS ORDERED: PEG 3350 (420 GM/BTL) + LYTES 4,000 ML BOTTLE PO ONE (07:39)
--- NOTE | 2023-03-17 07:43 | P.GSHP ---
History of Present Illness H&P Date: 03/17/23 CHIEF COMPLAINT: History of sigmoid volvulus and diverticulosis HISTORY OF PRESENT ILLNESS: The patient is a 58-year-old female with long- standing history of chronic constipation including large bowel obstruction secondary to sigmoid volvulus and diverticulosis. Now she presents for sigmoid colon resection. PAST MEDICAL HISTORY: Please see list. PAST SURGICAL HISTORY: Please see list. MEDICATIONS: Please see list. ALLERGIES: Please see list. SOCIAL HISTORY: No illicit drug use FAMILY HISTORY: No reports of Crohn disease or ulcerative colitis. REVIEW OF ORGAN SYSTEMS: CONSTITUTIONAL: Denies any fever or chills. HEENT: Denies any trouble with vision or nosebleeds. No difficulty swallowing. LYMPHATIC: The patient denies any lumps and bumps around the neck. ENDOCRINE: Denies any thyroid disorders. RESPIRATORY: Denies pneumonia. Denies any troubles with breathing or dyspnea on exertion. CARDIOVASCULAR: Denies any chest pain, palpitations, or recent heart attacks GASTROINTESTINAL: Has gastroesophageal reflux disease GENITOURINARY: No blood in urine. MUSCULOSKELETAL: Has back pain, stiffness, joint arthritis. NEUROLOGIC: Denies any numbness or tingling along the distal extremities. No seizure disorders or headaches. PSYCHIATRIC: Denies depression or suidical ideation. HEMATOLOGIC: Denies any abnormal bleeding or bruising. PHYSICAL EXAM: VITAL SIGNS: Stable GENERAL: Well-developed pleasant in no acute distress. HEENT: No scleral icterus. Extraocular movements grossly intact. Moist buccal mucosa. NECK: Supple without lymphadenopathy. CHEST: Unlabored respirations. Equal bilateral excursions. CARDIOVASCULAR: Regular rate and rhythm. Distal 2+ pulses. ABDOMEN: Soft, nontender, nondistended. MUSCULOSKELETAL: No clubbing, cyanosis, or edema. NERUO: Cranial nerves II through XII grossly intact PSYCH: Alert and oriented to person place and time. ASSESSMENT: 1. Sigmoid diverticulosis 2. Sigmoid volvulus. PLAN: 1. Benefits and risks of surgical intervention particular sigmoid volvulus and diverticulosis reviewed in detail. Robotic-assisted approach was also described for lower anterior resection and sigmoid colectomy. 2. She has completed an enhanced colon recovery program. 3. DVT prophylaxis. 4. Antibiotic prophylaxis. 5. Colonoscopy for tattooing. Past Medical History Past Medical History: Hypertension Additional Past Medical History / Comment(s): Diverticulitis History of Any Multi-Drug Resistant Organisms: None Reported Past Surgical History: Bariatric Surgery, Breast Surgery, Orthopedic Surgery, Tonsillectomy, Uterine Ablation Additional Past Surgical History / Comment(s): D&C with fibroid removal, RNY, panniculectomy, TOE SX, breast reduction, eyelid skin removal Past Anesthesia/Blood Transfusion Reactions: Motion Sickness Past Psychological History: Anxiety, Depression Smoking Status: Never smoker Past Alcohol Use History: Occasional Past Drug Use History: None Reported - Past Family History Mother Family Medical History: No Reported History Additional Family Medical History / Comment(s): Skin Cancer Father Family Medical History: Congestive Heart Failure (CHF) Medications and Allergies Home Medications Medication Instructions Recorded Confirmed Type Cyclobenzaprine HCl 5 mg PO HS PRN 02/10/22 03/17/23 History Escitalopram Oxalate [Lexapro] 20 mg PO DAILY 02/10/22 03/17/23 History Ferrous Sulfate [Iron] 325 mg PO BID 02/10/22 03/17/23 History Losartan/Hydrochlorothiazide 1 tab PO DAILY 02/10/22 03/17/23 History [Losartan-Hctz 100-25 mg Tab] Metoprolol Tartrate [Lopressor] 25 mg PO BID 02/10/22 03/17/23 History amLODIPine BESYLATE 10 mg PO DAILY 02/10/22 03/17/23 History hydrOXYzine HCL 25 mg PO HS PRN 02/10/22 03/17/23 History traZODone HCL [Desyrel] 50 mg PO HS PRN 11/10/22 03/17/23 History Allergies Allergy/AdvReac Type Severity Reaction Status Date / Time narcotics AdvReac Nausea & Uncoded 03/17/23 07:20 Vomiting Surgical - Exam Vital Signs Temp Pulse Resp BP Pulse Ox 98.4 F 70 18 137/84 98 03/17/23 07:25 03/17/23 07:25 03/17/23 07:25 03/17/23 07:25 03/17/23 07:25
[2023-03-17] MEDS ORDERED: SODIUM CHLORIDE 0.9% 1,000 ML IV ONE (07:55)
[2023-03-17] MEDS ORDERED: HYDROmorphone 1 MG/ML 1 ML SYRINGE IVP PRN (07:55)
[2023-03-17] MEDS ORDERED: LORazepam 2 MG/ML INJ IV PRN (07:55)
--- NOTE | 2023-03-17 07:58 | P.PCN ---
Date of Procedure: 03/17/23 Description of Procedure: PREOPERATIVE DIAGNOSIS: Sigmoid volvulus POSTOPERATIVE DIAGNOSIS: Sigmoid volvulus OPERATION: Colonoscopy to the ascending colon SURGEON: Melisa Toribio MD. ANESTHESIA: MAC. INDICATIONS: The patient is a 58-year-old female who presents with change in bowel habits, sigmoid volvulus. Benefits and risks were described and informed consent was obtained. DESCRIPTION OF PROCEDURE: The patient had undergone Sutab prep. The patient had been brought into the operating room and laid in the left lateral decubitus position. After adequate intravenous sedation, the rectum was examined with 2% lidocaine jelly. External hemorrhoids were encountered. The rectal tone was within normal limits. No lesions were palpated in the rectal vault. An Olympus colonoscope was advanced ascending colon due to moderate redundancy of the sigmoid colon. The prep was excellent. Moderate redundancy at the sigmoid colon was identified without ischemic changes. No colonic polyps were found. No evidence of focal colitis was found. Retroflexion of the scope demonstrated grade 1 internal hemorrhoids without active bleeding or inflammation. The colon was desufflated. The patient had tolerated the procedure well. Withdrawal time was over 6 minutes. FINDINGS: Aronchick preparation quality scale 1 (1-5) Internal hemorrhoids, grade 1 External prolapsed hemorrhoids, grade 1 No arteriovenous malformations. Moderate redundant sigmoid colon without ischemic changes with acute problems No adenomatous polyps. No focal colitis. RECOMMENDATIONS: Sigmoid colectomy for sigmoid volvulus advised
[2023-03-17 09:16] LABS: Basophils % (A) 0 %; Eosinophils # (A) 0.1 k/uL (0-0.7); Eosinophils % (A) 1 %; HCT 39.2 % (34.0-46.0); HGB 13.2 gm/dL (11.4-16.0); Lymphocytes # (A) 1.2 k/uL (1.0-4.8); Lymphocytes % (A) 20 %; MCH 33.3 pg (25.0-35.0); MCHC 33.6 g/dL (31.0-37.0); MCV 99.2 fL (80.0-100.0); Mean Platelet Volume 8.3; Monocytes # (A) 0.5 k/uL (0-1.0); Monocytes % (A) 8 %; Neutrophils # (A) 4.1 k/uL (1.3-7.7); Neutrophils % (A) 68 %; Platelet Count 335 k/uL (150-450); RBC 3.96 m/uL (3.80-5.40)
[2023-03-17] MEDS: D5-0.45% NACL WITH KCL 20MEQ/L 1,000 ML IV SCH ×2 (09:37→20:14)
[2023-03-17 09:48] LABS: ALT 47 U/L (4-34); AST 47 U/L (14-36); African American GFR (CKD) >90 (>60 ml/min/1.73 sqM); Albumin 4.7 g/dL (3.5-5.0); Albumin/Globulin Ratio 2.4; Alkaline Phosphatase 91 U/L (38-126); Anion Gap 11 mmol/L; Blood Urea Nitrogen 11 mg/dL (7-17); Carbon Dioxide 22 mmol/L (22-30); Chloride 106 mmol/L (98-107); Glucose 105 mg/dL (74-99); Non-African American GFR(CKD) >90 (>60 ml/min/1.73 sqM); Potassium 3.7 mmol/L (3.5-5.1); Sodium 139 mmol/L (137-145); Total Bilirubin 0.8 mg/dL (0.2-1.3); Total Protein 6.7 g/dL (6.3-8.2)
[2023-03-17] MEDS: LACTATED RINGERS 1,000 ML IV SCH (11:13)
[2023-03-17] MEDS: ONDANSETRON 4 MG/2 ML VIAL IVP SCH ×3 (12:42→23:06)
[2023-03-17] MEDS ORDERED: metroNIDAZOLE 500 MG TAB PO SCH (13:00)
[2023-03-17] MEDS ORDERED: NEOMYCIN 500 MG TAB PO SCH (13:00)
[2023-03-17] MEDS ORDERED: traZODone HCL 50 MG TAB PO PRN (16:58)
[2023-03-17] MEDS ORDERED: CYCLOBENZAPRINE 5 MG TAB PO PRN (16:58)
[2023-03-17] MEDS: METOPROLOL TARTRATE 25 MG TAB PO SCH (20:13)
[2023-03-17] MEDS ORDERED: TEMAZEPAM 15 MG CAP PO ONE (21:00)
[2023-03-18] MEDS ORDERED: metroNIDAZOLE-NS PMX 500 MG in SALINE 1 100ML.BAG IVPB PRN (05:00)
[2023-03-18] MEDS: ONDANSETRON 4 MG/2 ML VIAL IVP SCH ×3 (05:50→20:11)
[2023-03-18] MEDS ORDERED: MELOXICAM 7.5 MG TAB PO PRN (07:00)
[2023-03-18] MEDS ORDERED: ALVIMOPAN 12 MG CAPSULE PO PRN (07:00)
[2023-03-18] MEDS ORDERED: ACETAMINOPHEN TAB 500 MG TAB PO PRN (07:00)
[2023-03-18] MEDS: D5-0.45% NACL WITH KCL 20MEQ/L 1,000 ML IV SCH ×2 (07:59→20:11)
[2023-03-18] MEDS: METOPROLOL TARTRATE 25 MG TAB PO SCH ×2 (08:07→21:34)
[2023-03-18] MEDS: amLODIPine 10 MG TAB PO SCH (08:07)
[2023-03-18] MEDS: LOSARTAN-HCTZ 50-12.5 MG 1 EACH TAB PO SCH (08:07)
[2023-03-18] MEDS: LACTATED RINGERS 1,000 ML IV SCH ×2 (10:22→12:03)
[2023-03-18] MEDS ORDERED: DEXAMETHASONE SOD PHOSPHATE 4 MG/ML 1 ML VIAL IVP ONE (10:51)
[2023-03-18 11:02] LABS: Basophils # (A) 0.05 X 10*3/uL (0.00-0.10); Basophils % (A) 1.3 %; Eosinophils # (A) 0.06 X 10*3/uL (0.04-0.35); Eosinophils % (A) 1.5 %; HCT 35.4 % (37.2-46.3); HGB 12.1 g/dL (12.0-15.0); Lymphocytes # (A) 1.11 X 10*3/uL (0.90-5.00); Lymphocytes % (A) 28.5 %; MCH 33.6 pg (27.0-32.0); MCHC 34.2 g/dL (32.0-37.0); MCV 98.3 FL (80.0-97.0); Mean Platelet Volume 9.1 FL (9.5-12.2); Monocytes # (A) 0.45 X 10*3/uL (0.20-1.00); Monocytes % (A) 11.6 %; NRBC Per 100 WBC 0 X 10*3/uL (0.00-0.01); Neutrophils # (A) 2.21 X 10*3/uL (1.80-7.70); Neutrophils % (A) 56.8 %; Platelet Count 267 X 10*3/uL (140-440); RDW 11.4 % (11.5-14.5); WBC 3.89 X 10*3/uL (4.50-10.00)
[2023-03-18] MEDS ORDERED: MIDAZOLAM 2 MG/2 ML VIAL IVP ONE (11:23)
[2023-03-18] MEDS ORDERED: fentaNYL (PF) 50 MCG/ML 2 ML AMP IVP ONE (11:24)
[2023-03-18 11:26] LABS: BUN/Creat Ratio 6.17 Ratio (12.00-20.00); Blood Urea Nitrogen 3.7 mg/dL (9.0-27.0); Calcium 9.6 mg/dL (8.7-10.3); Carbon Dioxide 23.3 mmol/L (21.6-31.8); Chloride 108 mmol/L (96-109); Glucose 126 mg/dL (70-110); Potassium 4.6 mmol/L (3.5-5.5); Sodium 140 mmol/L (135-145)
[2023-03-18] MEDS ORDERED: GLYCOPYRROLATE 0.2 MG/ML 2 ML VIAL ONE (12:03)
[2023-03-18] MEDS ORDERED: LIDOCAINE 1% INJ 10MG/ML (20 ML MDV) ONE (12:03)
[2023-03-18] MEDS ORDERED: SUCCINYLCHOLINE CHLORIDE 200 MG/10 ML VIAL IV ONE (12:03)
[2023-03-18] MEDS ORDERED: MIDAZOLAM 2 MG/2 ML VIAL ONE (12:03)
[2023-03-18] MEDS ORDERED: ROPIVACAINE 5 MG/ML 30 ML VIAL ONE (12:03)
[2023-03-18] MEDS ORDERED: ROCURONIUM 10 MG/ML (5 ML VIAL) IV ONE (12:03)
[2023-03-18] MEDS ORDERED: SODIUM CHLORIDE 0.9% (PF) 10 ML VIAL ONE (12:03)
[2023-03-18] MEDS ORDERED: PROPOFOL 10 MG/ML 20 ML VIAL IV ONE (12:03)
[2023-03-18] MEDS ORDERED: HYDROmorphone (PF) 1 MG/ML ONE (12:03)
[2023-03-18] MEDS ORDERED: fentaNYL (PF) 50 MCG/ML 2 ML AMP ONE (12:03)
[2023-03-18] MEDS ORDERED: NEOSTIGMINE 1 MG/ML 10 ML VIAL ONE (12:03)
[2023-03-18] MEDS ORDERED: LIDOCAINE 1%-EPI 1:100,000 50 ML VIAL SQ ONE ×2 (13:01)
--- NOTE | 2023-03-18 14:44 | P.ANPRN ---
Procedure Note - Anesthesia - Nerve Block Performed Bilateral Erector Spinae Single Time Out Performed: Yes (1123) Date of Procedure: 03/18/23 Procedure Start Time: : Procedure Stop Time: Location of Patient: PreOp Indication: Acute Post-Operative Pain, Requested by Surgeon Specifically requested for management of pain by : Melisa Toribio Sedation Type: Sedate with meaningful contact maintained Preparation: Sterile Prep Position: Sitting Catheter: None Needle Types: Pajunk Needle Gauge: 21 Ultrasound used to visualize needle placement: Yes Ultrasound used to observe medication spread: Yes Injectate: 0.5% Ropivacaine (see comment for volume) (15cc + 10cc nacl pf each side) Blood Aspirated: No Pain Paresthesia on Injection Noted: No Resistance on Injection: Normal Image Stored and Saved: Yes Events: Uneventful and Well Tolerated
[2023-03-18] MEDS ORDERED: LACTATED RINGERS 1,000 ML IV ONE (15:14)
[2023-03-18] MEDS ORDERED: diphenhydrAMINE 50 MG/ML 1 ML VIAL IVP PRN (15:33)
[2023-03-18] MEDS ORDERED: NALOXONE 0.4 MG/ML 1 ML VIAL IV PRN (15:33)
[2023-03-18] MEDS ORDERED: CYCLOBENZAPRINE 10 MG TAB PO PRN (15:34)
[2023-03-18] MEDS ORDERED: METOCLOPRAMIDE 5 MG/ML 2 ML VIAL IVP PRN (15:35)
[2023-03-18] MEDS ORDERED: fentaNYL PCA 500 MCG/50 ML BAG IV SCH (15:45)
[2023-03-18] MEDS ORDERED: ALBUTEROL NEBULIZED 2.5 MG/3 ML INHALATION ONE (15:45)
--- NOTE | 2023-03-18 16:07 | P.OP ---
Date of Procedure: 03/18/23 Description of Procedure: SURGEON: RHEA KLEIN MD PREOPERATIVE DIAGNOSES: 1. Sigmoid volvulus/diverticulitis with chronic abdominal pain, constipation 2. Hypertensive heart disease 3. History of gastric bypass 4. Iron deficiency anemia 5. Depressive disorder 6. Generalized anxiety disorder 7. Motion sickness POSTOPERATIVE DIAGNOSES: 1. Sigmoid volvulus 2. Hypertensive heart disease 3. History of gastric bypass 4. Iron deficiency anemia 5. Depressive disorder 6. Generalized anxiety disorder 7. Motion sickness OPERATION: 1. Robotic-assisted daVinci Xi sigmoid colectomy with low anterior resection using 29 mm Ethicon powered stapler 2. Intraoperative colonoscopy used for sigmoidoscopy Anesthesia: GETA, local, regional Estimated Blood Loss (ml): 20 Pathology: 1. Sigmoid colon 2. EEA donuts 3. Proximal colotomy Condition: stable Disposition: floor COMPLICATIONS: None. Operative Findings: 1. Redundant sigmoid colon and active sigmoid volvulus without bowel ischemia 2. Anastomosis with EEA stapler 29 mm 3. No tension or torsion along the anastomosis 4. Doughnuts thick and both sides and viable 5. Moderately redundant sigmoid colon without tension at anastomosis 6. Negative leak test with viable anastomosis. INDICATIONS: The patient is a 58-year-old female who presents with change in bowel habits, sigmoid diverticulosis with volvulus, intermittent.Benefits and risks of surgical intervention was described in detail including infection, injury to the ureter, colostomy creation, possibility for additional surgery was discussed at length. Informed consent was obtained. All questions of the patient and family were answered. DESCRIPTION: Earlier the patient had undergone a bowel prep using the enhanced colon recovery program. The patient was transferred to the operating room and placed supine. After general induction, the abdomen was prepped and draped in standard sterile fashion. Ioban was placed along the abdomen to minimize any contamination of skin floor. A Valdes catheter was placed. After a timeout protocol was performed, attention was then brought to the left upper quadrant whereby a 0 degree 5 mm laparoscopic trocar entry was performed. The abdominal cavity was entered and insufflated to 15 mmHg pressure, which was tolerated well. Diagnostic laparoscopy confirmed moderately redundant sigmoid colon and active sigmoid volvulus. The small bowel was unremarkable. Next a robotic 12-mm trocar was placed along the right lateral abdominal wall 20 cm superior from the pelvis. Two 8 mm ports were placed along the upper abdomen. Ports were placed 10 cm apart from each other including 20 cm away from the target anatomy of the left pelvis. The 12-mm port was exchanged for an 8 mm robotic port at the left upper quadrant. The robot was docked along the left lateral abdomen. The patient was positioned in steep Trendelenburg position at 23-degrees. Using atraumatic graspers and vessel sealer, the robotic system was docked and primed as described. Instruments were interchanged by the assistant customer service manager including hook cautery, needle security patrol driver, robotic stapler and vessel sealer. The robot stapler was prepared along the right lateral abdominal wall. The stapler 12-mm port was arranged along the right lateral abdominal wall. Next, attention was brought to identify the sigmoid colon. A stay suture using 3- 0 silk was placed along the anterior serosa of the redundant sigmoid colon. The sigmoid mesentery was mobilized using a vessel sealer whereby the descending colon was marked and tagged. Using multiple fires of the robot stapler 60 mm green load, the proximal sigmoid colon was divided. The mesentery of the sigmoid colon was mobilized towards the pelvic brim and sacral promontory using a vessel sealer. The sigmoid volvulus was reduced with viable colon. Next, the sigmoid colon was divided using the robotic stapler 60 mm green staple loads. The rest of the sigmoid colon mesentery was mobilized using vessel sealer. Additionally, the sigmoid colon was mobilized onto the colon to minimize injury to the ureters. I went to the foot of the bed to confirm sizers and placement of 29-mm Ethicon powered stapler. I re-scrubbed into the case. The robotic arms were temporarily undocked. A 29-mm anvil was placed with a 3-0 silk sutured at the tip of the anvil geographic information systems manager. Then the anvil was placed via the left upper quadrant 12 mm port. All robotic arms were re-docked. I went back to the console. The staple line was opened using cautery. The anvil was entered into the proximal descending colon. The colotomy was closed using 60 mm green load. Next, the sharp tip of the anvil geographic information systems manager was brought through the staple line. The anvil geographic information systems manager was removed from the abdomen using empty clip appliers. I went to the foot of the bed to place the powered Ethicon 29 mm stapler via the rectum. The anvil and stapler were mated for 1 minute. The doughnuts were intact on both sides and thick. An intraoperative leak test was performed as I inserted the colonoscope to the anastomosis. Endoscopic images were obtained. Irrigation was placed in the pelvis and no air leaks were identified. Irrigation fluid was aspirated from the pelvis until dry. I went back to the console. All sponges and needles were removed from the abdominal cavity. The robot was undocked. I re-scrubbed into the case. Via the left upper quadrant port, the sigmoid colon was removed using 15 mm Endo Catch bag. All sponges were removed from the abdominal cavity. The left upper quadrant incision was widened to 3-cm. No contamination had occurred throughout the case. The fascial defect was oversewn using 0 Vicryl and a Trent Arellano including the right upper quadrant. Next all pneumoperitoneum was evacuated from the abdominal cavity. The 8-mm trocar sites were reapproximated using 4-0 Monocryl in an interrupted subcuticular fashion. Local anesthetic was infiltrated to all wounds for postop analgesia. All incisions were also cleansed with diluted hydrogen peroxide. An Fotomoto optical surgical dressing was placed over the colon extraction site. Liquid glue was applied to the rest of the skin incisions. The patient had tolerated the procedure well. The patient was extubated successfully. The patient was transferred to the postanesthesia care unit in stable condition. Intraoperative findings were described in detail to the patient's family.
[2023-03-18] MEDS: ACETAMINOPHEN IV (For NPO) 1,000 MG in EMPTY BAG 1 BAG IVPB SCH (20:09)
[2023-03-18] MEDS: KETOROLAC 15 MG/ML 1 ML VIAL IVP SCH (20:10)
[2023-03-18] MEDS: SIMETHICONE 40 MG/0.6 ML DROPS 2,000 MG/30 ML BOTTLE PO SCH (20:12)
[2023-03-18] MEDS: metroNIDAZOLE-NS PMX 500 MG in SALINE 1 100ML.BAG IVPB SCH (20:59)
[2023-03-18] MEDS: HEPARIN SODIUM,PORCINE 5,000 UNIT/ML 1 ML VIAL SQ SCH (21:28)
[2023-03-19] MEDS: ACETAMINOPHEN IV (For NPO) 1,000 MG in EMPTY BAG 1 BAG IVPB SCH ×3 (00:22→10:47)
[2023-03-19] MEDS: KETOROLAC 15 MG/ML 1 ML VIAL IVP SCH ×3 (00:23→11:21)
[2023-03-19] MEDS: ONDANSETRON 4 MG/2 ML VIAL IVP SCH ×3 (00:24→11:28)
[2023-03-19] MEDS: SIMETHICONE 40 MG/0.6 ML DROPS 2,000 MG/30 ML BOTTLE PO SCH ×3 (00:24→13:00)
[2023-03-19] MEDS: D5-0.45% NACL WITH KCL 20MEQ/L 1,000 ML IV SCH (03:45)
[2023-03-19] MEDS: metroNIDAZOLE-NS PMX 500 MG in SALINE 1 100ML.BAG IVPB SCH ×2 (03:46→11:22)
[2023-03-19] MEDS: METOPROLOL TARTRATE 25 MG TAB PO SCH (08:56)
[2023-03-19] MEDS: HEPARIN SODIUM,PORCINE 5,000 UNIT/ML 1 ML VIAL SQ SCH (08:56)
[2023-03-19] MEDS ORDERED: PANTOPRAZOLE 40 MG/10 ML VIAL IVP SCH (09:00)
[2023-03-19] MEDS ORDERED: ALVIMOPAN 12 MG CAPSULE PO SCH (09:00)
[2023-03-19 09:12] VITALS: BP 108/71; PULSE 72; RESP 15; TEMP 98.4
[2023-03-19] MEDS: amLODIPine 10 MG TAB PO SCH (09:13)
[2023-03-19] MEDS: LOSARTAN-HCTZ 50-12.5 MG 1 EACH TAB PO SCH (09:13)
[2023-03-19 09:22] LABS: BUN/Creat Ratio 6.17 Ratio (12.00-20.00); Blood Urea Nitrogen 3.7 mg/dL (9.0-27.0); Calcium 8.9 mg/dL (8.7-10.3); Carbon Dioxide 23.3 mmol/L (21.6-31.8); Chloride 101 mmol/L (96-109); Glucose 111 mg/dL (70-110); Potassium 3.7 mmol/L (3.5-5.5); Sodium 134 mmol/L (135-145)
[2023-03-19 09:23] LABS: Basophils # (A) 0.02 X 10*3/uL (0.00-0.10); Basophils % (A) 0.2 %; Eosinophils # (A) 0 X 10*3/uL (0.04-0.35); Eosinophils % (A) 0 %; HCT 29.9 % (37.2-46.3); HGB 10.3 g/dL (12.0-15.0); Lymphocytes # (A) 1.22 X 10*3/uL (0.90-5.00); Lymphocytes % (A) 13.4 %; MCH 33.4 pg (27.0-32.0); MCHC 34.4 g/dL (32.0-37.0); MCV 97.1 FL (80.0-97.0); Mean Platelet Volume 9.3 FL (9.5-12.2); Monocytes % (A) 6.6 %; NRBC Per 100 WBC 0 X 10*3/uL (0.00-0.01); Neutrophils # (A) 7.23 X 10*3/uL (1.80-7.70); Neutrophils % (A) 79.3 %; Platelet Count 216 X 10*3/uL (140-440); RBC 3.08 X 10*6/uL (4.10-5.20); RDW 11.3 % (11.5-14.5); WBC 9.12 X 10*3/uL (4.50-10.00)
--- NOTE | 2023-03-19 11:37 | P.PN ---
Progress Note - Text Patient looks great and is feeling great. She would like to go home. Abdomen is soft. Incisions are clean dry and intact. She will go home after she is able to void on her own.
--- NOTE | 2023-03-21 13:37 | P.DS ---
Providers Date of admission: 03/17/23 07:42 Expected date of discharge: 03/19/23 Attending physician: Melisa Toriibo Primary care physician: [facility] Hospital Course: POSTOPERATIVE DIAGNOSES: 1. Sigmoid volvulus 2. Hypertensive heart disease 3. History of gastric bypass 4. Iron deficiency anemia 5. Depressive disorder 6. Generalized anxiety disorder 7. Motion sickness INDICATIONS: The patient is a 58-year-old female who presented with chronic abdominal pain with change in bowel habits. Diagnostic studies including colonoscopy demonstrated features of sigmoid volvulus. She underwent lower anterior resection with 10 -12 inches of sigmoid colon resected. Postoperatively, patient was passing flatus and tolerating diet. She was stable for discharge and discharge instructions were reviewed Procedures: OPERATION: 1. Robotic-assisted daVinci Xi sigmoid colectomy with low anterior resection using 29 mm Ethicon powered stapler 2. Intraoperative colonoscopy used for sigmoidoscopy Anesthesia: GETA, local, regional Estimated Blood Loss (ml): 20 Pathology: 1. Sigmoid colon 2. EEA donuts 3. Proximal colotomy Condition: stable Disposition: floor COMPLICATIONS: None. Operative Findings: 1. Redundant sigmoid colon and active sigmoid volvulus without bowel ischemia 2. Anastomosis with EEA stapler 29 mm 3. No tension or torsion along the anastomosis 4. Doughnuts thick and both sides and viable 5. Moderately redundant sigmoid colon without tension at anastomosis 6. Negative leak test with viable anastomosis. Patient Condition at Discharge: Good Plan - Discharge Summary Discharge Rx Participant: Yes New Discharge Prescriptions: New Acetaminophen Tab [Tylenol Tab] 1,000 mg PO Q6HR PRN #30 tablet PRN Reason: Pain Cyclobenzaprine [Flexeril] 10 mg PO TID #30 tab Simethicone [Gas-X] 125 mg PO AC-TID PRN #20 capsule PRN Reason: Pain Continue Metoprolol Tartrate [Lopressor] 25 mg PO BID Escitalopram Oxalate [Lexapro] 20 mg PO DAILY hydrOXYzine HCL 25 mg PO HS PRN PRN Reason: sleep and anxiety Ferrous Sulfate [Iron] 325 mg PO BID amLODIPine BESYLATE 10 mg PO DAILY Losartan/Hydrochlorothiazide [Losartan-Hctz 100-25 mg Tab] 1 tab PO DAILY traZODone HCL [Desyrel] 50 mg PO HS PRN PRN Reason: sleep Discontinued Cyclobenzaprine HCl 5 mg PO HS PRN PRN Reason: muscle relaxer Discharge Medication List Escitalopram Oxalate [Lexapro] 20 mg PO DAILY 02/10/22 [History] Ferrous Sulfate [Iron] 325 mg PO BID 02/10/22 [History] Losartan/Hydrochlorothiazide [Losartan-Hctz 100-25 mg Tab] 1 tab PO DAILY 02/10/22 [History] Metoprolol Tartrate [Lopressor] 25 mg PO BID 02/10/22 [History] amLODIPine BESYLATE 10 mg PO DAILY 02/10/22 [History] hydrOXYzine HCL 25 mg PO HS PRN 02/10/22 [History] traZODone HCL [Desyrel] 50 mg PO HS PRN 11/10/22 [History] Acetaminophen Tab [Tylenol Tab] 1,000 mg PO Q6HR PRN #30 tablet 03/19/23 [Rx] Cyclobenzaprine [Flexeril] 10 mg PO TID #30 tab 03/19/23 [Rx] Simethicone [Gas-X] 125 mg PO AC-TID PRN #20 capsule 03/19/23 [Rx] [facility]ment[facility]Ref[facility] [place] [place] [facility] - [facility]/23/23 1:00 pm Patient Instructions/Handouts: Colectomy Diet (DC), Laparoscopic Bowel Resection (GEN) Activity/Diet/Wound Care/Special Instructions: EXPECT BOWEL MOVEMENT WITH BLOOD FOR 1 WEEK TAKE LAXATIVE FOR CONSTIPATION AFTER 4 DAYS, 03/22/23 Wear abdominal binder for comfort. No lifting over 4 pounds in 4 weeks Apr 18July shower. No bath tub soaks for two weeks until Apr 01 Avoid steak, tough meats and seeds such as raspberry seeds. See diverticulitis, low fiber, colectomy diet Use Tylenol and flexeril scheduled for the next 24-48 hours for best pain relief. Use ice along incisions for today to prevent swelling. Discharge Disposition: HOME SELF-CARE
== END 2023-03-19 13:01 | disposition home or self-care (01) | DRG 330 ==
LOC: ORWHC2ENDO 07:02 → 4SSUR 07:41 → ORWHC2ENDO 07:42
PROVIDERS: ADMIT Surgery Plastic and Reconstructive Surgery; ATTEND Surgery Plastic and Reconstructive Surgery
PROC: 0DJD8ZZ Inspection of Lower Intestinal Tract, Via Natural or Artificial Opening Endoscopic (ICD-10-PCS; 2023-03-17)
PROC: 0DJD8ZZ Inspection of Lower Intestinal Tract, Via Natural or Artificial Opening Endoscopic (ICD-10-PCS; 2023-03-18)
PROC: 8E0W4CZ Robotic Assisted Procedure of Trunk Region, Percutaneous Endoscopic Approach (ICD-10-PCS; 2023-03-18)
PROC: 0DTN0ZZ Resection of Sigmoid Colon, Open Approach (ICD-10-PCS; principal; 2023-03-18 11:55)
DX: K56.2 Volvulus (principal); Q43.8 Other specified congenital malformations of intestine; D50.9 Iron deficiency anemia, unspecified; F32.A Depression, unspecified; F41.1 Generalized anxiety disorder; G89.29 Other chronic pain; I11.9 Hypertensive heart disease without heart failure; K64.0 First degree hemorrhoids; T75.3XXA Motion sickness, initial encounter; Z79.899 Other long term (current) drug therapy; Z82.49 Family history of ischemic heart disease and other diseases of the circulatory system; Z98.84 Bariatric surgery status; Z28.311 Partially vaccinated for COVID-19; Z88.5 Allergy status to narcotic agent
CPT/HCPCS: 45378; 64999; 80048; 80053; 85025; 93005

== ENCOUNTER → 2023-03-30 | Outpatient (CLI) | payer OTHER ==
--- NOTE | 2023-03-30 14:57 | P.BASOAP ---
Subjective Progress Note Date: 03/30/23 DATE OF SERVICE: 03/30/23 CHIEF COMPLAINT: Morbid obesity HISTORY OF PRESENT ILLNESS: Eloisa Scruggs is a 58-year-old female who comes with lifelong morbid obesity. She is status post colectomy for sigmoid volvulus. She comes in with new concerns of flank pain in 2 days. She has pain at the left kidney/flank. She has constipation. She takes Emergen-c for energy. At height of 5 feet 0 inches, her ideal body weight is 127 pounds. Highest weight 205.4 pounds body mass index 40.2. She comes in 137 pounds. Her body mass index is 26.8. Lifetime weight loss 69 pounds. Percent lifetime excess weight loss 87%. She is 10 pounds overweight. PHYSICAL EXAM: VITAL SIGNS: Height 5 foot 0 inches, weight 137 pounds. BMI 26.8 Vital Signs Temp 98.5 F 03/30/23 15:11 Pulse 69 03/30/23 15:11 Resp BP 126/77 03/30/23 15:11 Pulse Ox FiO2 GENERAL: Well-developed in no acute distress. HEENT: No scleral icterus. Extraocular movements grossly intact. Hears conversational speech. No nasal drainage. NECK: Supple without lymphadenopathy. CHEST: Nonlabored respirations with equal bilateral excursions. CARDIOVASCULAR: Regular rate and regular rhythm. Distal 2+ pulses. ABDOMEN: Obese, soft. Incision is intact. MUSCULOSKELETAL: No clubbing, cyanosis. NEURO: No focal or lateralizing signs. Cranial nerves 2 through 12 grossly within normal limits. PSYCH: Appropriate affect. Alert and oriented to person, place and time. SKIN: Good skin turgor. Well perfused. Final Pathologic Diagnosis SIGMOID COLON, SEGMENTAL RESECTION: Viable colonic tissue with features suggestive of early diverticular disease. Focal serosal fibrous adhesion seen. Margins benign and viable. Stated history of volvulus noted clinically. Three reactive pericolonic lymph nodes present. ASSESSMENT: 1. Sigmoid volvulus 2. Status post sigmoid colectomy 3. Status post gastric bypass 4. Hypertensive heart disease 5. Left flank pain with kidney stones 6. Constipation PLAN: 1. She has left kidney/flank with constipation. Start lactulose. 2. Consider ultrasound of left kidney for kidney stones Assessment/Plan Plan: Date: Initial Weight: 93.1 kg Initial BMI: Current Weight: Current BMI: Type of Surgery: Total Volume in Band: Previous Volume: Volume Removed: Volume Added: Band Size:
[2023-03-30 15:19] VITALS: BP 126/77; PULSE 69; TEMP 98.5; BMI 26.7
== END ==
LOC: BARWHC3 14:27
PROVIDERS: ATTEND Surgery Plastic and Reconstructive Surgery
DX: K56.2 Volvulus (principal); K59.00 Constipation, unspecified; R10.9 Unspecified abdominal pain; I11.9 Hypertensive heart disease without heart failure; N20.0 Calculus of kidney; Z98.84 Bariatric surgery status; Z98.890 Other specified postprocedural states; Z90.49 Acquired absence of other specified parts of digestive tract; Z88.5 Allergy status to narcotic agent; Z79.899 Other long term (current) drug therapy
CPT/HCPCS: 99211

== ENCOUNTER → 2023-03-30 | Outpatient (CLI) | payer OTHER ==
[2023-03-30 19:04] LABS: ALT 49 U/L (8-44); AST 38 U/L (13-35); Albumin 4.9 g/dL (3.8-4.9); Albumin/Globulin Ratio 2.04 Ratio (1.60-3.17); Alkaline Phosphatase 92 U/L (41-126); BUN/Creat Ratio 20.83 Ratio (12.00-20.00); Blood Urea Nitrogen 12.5 mg/dL (9.0-27.0); Calcium 10.5 mg/dL (8.7-10.3); Carbon Dioxide 26.5 mmol/L (21.6-31.8); Chloride 99 mmol/L (96-109); Globulin 2.4 g/dL (1.6-3.3); Glucose 102 mg/dL (70-110); Potassium 4.5 mmol/L (3.5-5.5); Sodium 138 mmol/L (135-145); Total Bilirubin 0.5 mg/dL (0.3-1.2); Total Protein 7.3 g/dL (6.2-8.2)
[2023-03-30 19:06] LABS: Basophils # (A) 0.06 X 10*3/uL (0.00-0.10); Basophils % (A) 0.9 %; Eosinophils # (A) 0.12 X 10*3/uL (0.04-0.35); Eosinophils % (A) 1.8 %; HCT 39.1 % (37.2-46.3); HGB 13.3 g/dL (12.0-15.0); Lymphocytes # (A) 1.38 X 10*3/uL (0.90-5.00); Lymphocytes % (A) 20.4 %; MCH 33.1 pg (27.0-32.0); MCV 97.3 FL (80.0-97.0); Mean Platelet Volume 8.8 FL (9.5-12.2); Monocytes # (A) 0.41 X 10*3/uL (0.20-1.00); NRBC Per 100 WBC 0 X 10*3/uL (0.00-0.01); Neutrophils # (A) 4.79 X 10*3/uL (1.80-7.70); Neutrophils % (A) 70.6 %; Platelet Count 423 X 10*3/uL (140-440); RBC 4.02 X 10*6/uL (4.10-5.20); RDW 11.5 % (11.5-14.5); WBC 6.78 X 10*3/uL (4.50-10.00)
== END | disposition home or self-care (01) ==
LOC: LABPAT 15:14
PROVIDERS: ATTEND Surgery Plastic and Reconstructive Surgery
DX: Z01.812 Encounter for preprocedural laboratory examination (principal)
CPT/HCPCS: 36415; 80053; 85025

== ENCOUNTER → 2023-03-30 | Outpatient (CLI) | payer OTHER ==
--- NOTE | 2023-03-30 15:15 | XR ---
EXAMINATION TYPE: XR abdomen 2V DATE OF EXAM: 03/30/2023 2:26 PM CLINICAL INDICATION:Female, 58 years old with history of R10; [facility] COMPARISON: 12/08/2022. TECHNIQUE: Two views of the abdomen were obtained. FINDINGS: The bowel gas pattern is nonspecific without dilated loops of small or large bowel. There i s no evidence for organomegaly or pneumoperitoneum. The osseous structures are intact. No abnormal calcifications are present. Fecal material and gas are demonstrated throughout the colon and rectum. Suture material seen in the left pelvis. Right upper quadrant cholecystectomy clips. Suture material in the left upper abdomen. Multilevel degeneration changes spine. Mild osteoarthrosis of the hips. IMPRESSION: Nonspecific bowel gas pattern without radiographic evidence for acute process.
== END | disposition home or self-care (01) ==
LOC: RADXRMAIN 14:04
PROVIDERS: ATTEND Surgery Plastic and Reconstructive Surgery
DX: R10.12 Left upper quadrant pain (principal)
CPT/HCPCS: 74019

== ENCOUNTER → 2023-04-06 | Outpatient (CLI) | payer OTHER ==
--- NOTE | 2023-04-06 19:13 | CT ---
EXAMINATION TYPE: CT abdomen pelvis wo con CT DLP: 316.6 mGycm, Automated exposure control for dose reduction was used. DATE OF EXAM: 04/06/2023 6:06 PM COMPARISON: 03/30/2023 CLINICAL INDICATION:Female, 58 years old with history of R10.9 LEFT FLANK PAIN; left flank pain x 2 w eeks TECHNIQUE: Axial CT abdomen pelvis wo con;Sagittal and coronal reformats were created on a separate workstation. Contrast used: mL of , (none if empty) Oral contrast used: without Oral Contrast (none if empty) FINDINGS: LOWER CHEST: Unremarkable ABDOMEN LIVER: Scattered hypoattenuating attenuating lesions throughout the GALLBLADDER AND BILE DUCTS: The gallbladder is surgically absent. PANCREAS: Unremarkable. SPLEEN: Unremarkable. ADRENAL GLANDS: Unremarkable. KIDNEYS AND URETERS: No evidence of hydronephrosis or renal calculus. The ureters are unremarkable. PELVIS BLADDER: Unremarkable REPRODUCTIVE: Unremarkable. ABDOMEN & PELVIS STOMACH AND BOWEL: No evidence of bowel obstruction. Postsurgical changes to the rectosigmoid junctio n. The appendix is normal. Additional surgical suture seen in the upper quadrant. Post surgical trevino es also noted at the gastroesophageal junction. PERITONEUM/RETROPERITONEUM: No evidence of pneumoperitoneum or free fluid. VASCULATURE: No evidence of aortic aneurysm. MUSCULOSKELETAL: No acute osseous abnormalities LYMPH NODES: No gross evidence for lymphadenopathy. SOFT TISSUE/ABDOMINAL WALL: Unremarkable IMPRESSION: 1. No acute abdominal process to explain the patient's left flank pain. No evidence for obstructive uropathy or renal calculus. 2. Postsurgical changes to the bowel without evidence for obstruction. 3. 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
== END | disposition home or self-care (01) ==
LOC: RADCTMAIN 16:45
PROVIDERS: ATTEND Surgery Plastic and Reconstructive Surgery
DX: K83.8 Other specified diseases of biliary tract (principal); Z98.890 Other specified postprocedural states
CPT/HCPCS: 74176

== ENCOUNTER → 2024-02-08 | Outpatient (CLI) | payer BC ==
[2024-02-08 16:46] VITALS: PULSE 67; RESP 16; TEMP 98.2; BMI 28.1
[2024-02-08 16:51] VITALS: BP 205/103
--- NOTE | 2024-02-08 16:59 | P.BASOAP ---
Subjective Progress Note Date: 02/08/24 She comes in from 137 to 144. Lowest weight was 115 pounds. She reports blood in stool. No constipation. She has pain after BM. She has 60% bleeding after bowel movements. Repeat 196/. Take another at home and additional pil. No dysphagia. Objective - Vital Signs Vital signs: Vital Signs Temp 98.2 F 02/08/24 16:36 Pulse 67 02/08/24 16:36 Resp 16 02/08/24 16:36 BP 205/103 02/08/24 16:36 Pulse Ox FiO2 Intake & Output 02/07/24 02/08/24 02/08/24 18:59 06:59 18:59 Weight 65.317 kg Assessment/Plan Plan: Date: 02/08/24 Initial Weight: 93.1 kg Initial BMI: 40.1 Current Weight: 65.317 kg Current BMI: 28.1 Type of Surgery: Total Volume in Band: Previous Volume: Volume Removed: Volume Added: Band Size:
== END ==
LOC: BARWHC3 15:14
PROVIDERS: ATTEND Surgery Plastic and Reconstructive Surgery
DX: E66.01 Morbid (severe) obesity due to excess calories (principal); Z88.8 Allergy status to other drugs, medicaments and biological substances; Z68.28 Body mass index [BMI] 28.0-28.9, adult
CPT/HCPCS: 99211

== ENCOUNTER 2024-03-05 07:44 | Day surgery (SDC) | payer BC ==
[2024-03-01 09:19] VITALS: BMI 27.3
[2024-03-05 08:11] VITALS: TEMP 97.8
[2024-03-05] MEDS: IV FLUID CONTINUATION 1,000 ML IV ONE ×2 (08:14→08:22)
[2024-03-05] MEDS: LACTATED RINGERS 1,000 ML IV SCH (08:14)
[2024-03-05] MEDS ORDERED: PROPOFOL 10 MG/ML 20 ML VIAL IV ONE (08:25)
[2024-03-05] MEDS ORDERED: LIDOCAINE 1% INJ 10MG/ML (20 ML MDV) ONE (08:25)
--- NOTE | 2024-03-05 08:31 | P.GSHP ---
History of Present Illness H&P Date: 03/05/24 CHIEF COMPLAINT: Colon screen HISTORY OF PRESENT ILLNESS: The patient is a 59-year-old female who presents for colon screen. Lower endoscopy was offered for further evaluation and management. PAST MEDICAL HISTORY: Please see list. PAST SURGICAL HISTORY: Please see list. MEDICATIONS: Please see list. ALLERGIES: Please see list. SOCIAL HISTORY: No illicit drug use FAMILY HISTORY: No reports of Crohn disease or ulcerative colitis. REVIEW OF ORGAN SYSTEMS: CONSTITUTIONAL: No reports of fevers or chills. PHYSICAL EXAM: VITAL SIGNS: Stable GENERAL: Well-developed pleasant in no acute distress. HEENT: No scleral icterus. Extraocular movements grossly intact. Moist buccal mucosa. NECK: Supple without lymphadenopathy. CHEST: Unlabored respirations. Equal bilateral excursions. CARDIOVASCULAR: Regular rate and rhythm. Distal 2+ pulses. ABDOMEN: Soft, nontender, nondistended. MUSCULOSKELETAL: No clubbing, cyanosis, or edema. ASSESSMENT: 1. Colon screen. PLAN: 1. Recommend proceeding with a lower endoscopy Past Medical History Past Medical History: Hypertension Additional Past Medical History / Comment(s): Diverticulitis History of Any Multi-Drug Resistant Organisms: None Reported Past Surgical History: Bariatric Surgery, Bowel Resection, Breast Surgery, Cholecystectomy, Orthopedic Surgery, Tonsillectomy, Uterine Ablation Additional Past Surgical History / Comment(s): D and C with fibroid removal and ABALATION. 08/07/12 RNY, panniculectomy,low anterior resection/ colectomy 03/18/23, breast reduction, excess skin removed from eyelids, colonoscopy. TOE SX Past Anesthesia/Blood Transfusion Reactions: No Reported Reaction, Motion Sickness Additional Past Anesthesia/Blood Transfusion Reaction / Comment(s): no blood transfusion Smoking Status: Never smoker - Past Family History Mother Family Medical History: No Reported History Additional Family Medical History / Comment(s): Skin Cancer Father Family Medical History: Congestive Heart Failure (CHF) Medications and Allergies Home Medications Medication Instructions Recorded Confirmed Type Escitalopram Oxalate [Lexapro] 20 mg PO DAILY 02/10/22 03/01/24 History Losartan/Hydrochlorothiazide 1 tab PO DAILY 02/10/22 03/05/24 History [Losartan-Hctz 100-25 mg Tab] Metoprolol Tartrate [Lopressor] 25 mg PO DAILY 02/10/22 03/01/24 History amLODIPine BESYLATE 10 mg PO DAILY 02/10/22 03/01/24 History hydrOXYzine HCL 25 mg PO HS PRN 02/10/22 03/01/24 History traZODone HCL [Desyrel] 50 mg PO HS PRN 11/10/22 03/01/24 History Acetaminophen Tab [Tylenol Tab] 1,000 mg PO Q6HR PRN #30 tablet 03/19/23 03/01/24 Rx Cyclobenzaprine [Flexeril] 10 mg PO TID PRN 02/08/24 03/01/24 History Ferrous Sulfate [Iron (65 MG 2 tab PO DAILY 02/08/24 03/01/24 History Elemental)] [place]-3/Dha/Epa/Fish Oil [[place]-3 1 cap PO DAILY 02/08/24 03/01/24 History Fish Oil 1,000 mg Sfgl] Allergies Allergy/AdvReac Type Severity Reaction Status Date / Time narcotics AdvReac Nausea & Uncoded 03/05/24 08:00 Vomiting Surgical - Exam Vital Signs Temp Pulse Resp BP Pulse Ox 97.8 F 63 16 189/90 95 03/05/24 08:08 03/05/24 08:08 03/05/24 08:08 03/05/24 08:08 03/05/24 08:08
--- NOTE | 2024-03-05 08:45 | P.PCN ---
Date of Procedure: 03/05/24 Description of Procedure: PREOPERATIVE DIAGNOSIS: Colonoscopy screening. History of rectal bleeding History of partial colectomy POSTOPERATIVE DIAGNOSIS: Colonoscopy screening. OPERATION: Colonoscopy to the cecum, ileocecal valve and appendiceal orifice. SURGEON: Melisa Toribio MD. ANESTHESIA: MAC. INDICATIONS: The patient is a 59-year-old female who presents for colonoscopy screening. Benefits and risks were described and informed consent was obtained. DESCRIPTION OF PROCEDURE: The patient had undergone Sutab prep. The patient had been brought into the operating room and laid in the left lateral decubitus position. After adequate intravenous sedation, the rectum was examined with 2% lidocaine jelly. No external hemorrhoids were encountered. The rectal tone was within normal limits. No lesions were palpated in the rectal vault. An Olympus colonoscope was advanced until the cecum, ileocecal valve and appendiceal orifice were clearly viewed. The prep was excellent. No scattered diverticulosis was encountered. No colonic polyps were found. No evidence of focal colitis was found. Retroflexion of the scope demonstrated grade 1 internal hemorrhoids without active bleeding or inflammation. The colon was desufflated. The patient had tolerated the procedure well. Withdrawal time was over 6 minutes. FINDINGS: Aronchick preparation quality scale 1 (1-5) Internal hemorrhoids, grade 1 No external prolapsed hemorrhoids. No arteriovenous malformations. No adenomatous polyps. No focal colitis. RECOMMENDATIONS: Lower endoscopy in 5 years, 2028 Plan - Discharge Summary Discharge Rx Participant: No New Discharge Prescriptions: Continue Acetaminophen Tab [Tylenol] 1,000 mg PO Q6HR PRN #30 tablet PRN Reason: Pain Ferrous Sulfate [Iron (65 MG Elemental)] 2 tab PO DAILY [place]-3/Dha/Epa/Fish Oil [[place]-3 Fish Oil 1,000 mg Sfgl] 1 cap PO DAILY Cyclobenzaprine [Flexeril] 10 mg PO TID PRN PRN Reason: muscle spasms Metoprolol Tartrate [Lopressor] 25 mg PO DAILY Escitalopram Oxalate [Lexapro] 20 mg PO DAILY hydrOXYzine HCL 25 mg PO HS PRN PRN Reason: sleep and anxiety amLODIPine BESYLATE 10 mg PO DAILY Losartan/Hydrochlorothiazide [Losartan-Hctz 100-25 mg Tab] 1 tab PO DAILY traZODone HCL [Desyrel] 50 mg PO HS PRN PRN Reason: sleep Discharge Medication List Escitalopram Oxalate [Lexapro] 20 mg PO DAILY 02/10/22 [History] Losartan/Hydrochlorothiazide [Losartan-Hctz 100-25 mg Tab] 1 tab PO DAILY 02/10/22 [History] Metoprolol Tartrate [Lopressor] 25 mg PO DAILY 02/10/22 [History] amLODIPine BESYLATE 10 mg PO DAILY 02/10/22 [History] hydrOXYzine HCL 25 mg PO HS PRN 02/10/22 [History] traZODone HCL [Desyrel] 50 mg PO HS PRN 11/10/22 [History] Acetaminophen Tab [Tylenol] 1,000 mg PO Q6HR PRN #30 tablet 03/19/23 [Rx] Cyclobenzaprine [Flexeril] 10 mg PO TID PRN 02/08/24 [History] Ferrous Sulfate [Iron (65 MG Elemental)] 2 tab PO DAILY 02/08/24 [History] [place]-3/Dha/Epa/Fish Oil [[place]-3 Fish Oil 1,000 mg Sfgl] 1 cap PO DAILY [History] [facility]Ref[place] 04/04/24 3:00 pm Patient Instructions/Handouts: Deep Sedation (DC) Discharge Disposition: HOME SELF-CARE
[2024-03-05 08:46] VITALS: RESP 18
[2024-03-05 09:01] VITALS: BP 139/85; PULSE 71
== END 2024-03-05 09:20 | disposition home or self-care (01) ==
LOC: ORWHC2ENDO 07:44
PROVIDERS: ATTEND Surgery Plastic and Reconstructive Surgery
DX: Z12.11 Encounter for screening for malignant neoplasm of colon (principal); K64.0 First degree hemorrhoids; K57.32 Diverticulitis of large intestine without perforation or abscess without bleeding; I10 Essential (primary) hypertension; F41.9 Anxiety disorder, unspecified; F32.A Depression, unspecified; Z90.49 Acquired absence of other specified parts of digestive tract; Z90.89 Acquired absence of other organs; Z82.49 Family history of ischemic heart disease and other diseases of the circulatory system; Z88.5 Allergy status to narcotic agent; Z79.899 Other long term (current) drug therapy
CPT/HCPCS: 45378; J2003; J2704